=== PATIENT | male | born 1990 | race Caucasian/White ===

== ENCOUNTER 2018-01-13 11:22 | Inpatient (IN) | payer OTHER ==
[~2018-01-13] VITALS: Ht 185.4 cm; Wt 95.7 kg
[2018-01-13 15:14] LABS: BASOPHILS % 0.5 % (0.0-2.0); EOSINOPHILS % 0.7 % (0.0-5.0); HEMATOCRIT. 40.5 % (42.0-52.0); HEMOGLOBIN. 14.1 g/dL (14.0-18.0); MEAN CORPUSCULAR HEMOGLOBIN 30.8 pg (28.0-32.0); MEAN CORPUSCULAR VOLUME 88.2 fL (80.0-94.0); MEAN PLATELET VOLUME 10.7 fl (7.4-10.4); MONOCYTES % 12.7 % (2.0-8.0); NEUTROPHILS % 55.1 % (40.0-76.0); PLATELET 81 x1000/uL (130-400); RED BLOOD CELL COUNT 4.59 mill/uL (4.7-6.1); RED CELL DISTRIBUTION WIDTH 13.6 % (11.6-14.6)
[2018-01-13 15:15] LABS: CHLORIDE 100 mEq/L (98-107)
[2018-01-13 15:25] LABS: INR 1.1; PROTHROMBIN TIME 11.2 sec (9.1-11.1)
[2018-01-13] MEDS ORDERED: ACETAMINOPHEN 650MG/20.3ML UDC PO ONE (15:30)
[2018-01-13 15:42] LABS: CLARITY URINE CLEAR (CLEAR); COLOR URINE YELLOW (YELLOW); KETONES URINE NEGATIVE (NEGATIVE); LEUKOCYTE ESTERASE URINE NEGATIVE (NEGATIVE); NITRITE URINE NEGATIVE (NEGATIVE); OCCULT BLOOD URINE NEGATIVE (NEGATIVE); PH URINE 6.5 (4.5-8.0); PROTEIN URINE NEGATIVE (NEGATIVE); SPECIFIC GRAVITY URINE 1.012 (1.005-1.030)
[2018-01-13] MEDS ORDERED: DIPHENHYDRAMINE 50MG/ML VIAL IV ONE (16:15)
[2018-01-13] MEDS ORDERED: METHYLPREDNISOLONE SOD SUCC 125 MG/2 ML VIAL IV ONE (16:15)
[2018-01-13] MEDS ORDERED: IPRATROPIUM/ALBUTEROL 0.5-3(2.5)MG/3ML NEB INH PRN (17:30)
[2018-01-13 20:30] VITALS: BP 108/50
[2018-01-13 21:30] VITALS: BP_SYST 108; BP_DIAS 50; BP_DIAS 52
[2018-01-14] VITALS: BP 103/46
[2018-01-14] MEDS: SODIUM CHLORIDE 0.9% 1,000 ML IV SCH ×2 (03:30→13:30)
[2018-01-14 04:00] VITALS: BP 104/62
[2018-01-14 07:33] LABS: BASOPHILS % 0.3 % (0.0-2.0); EOSINOPHILS % 0.1 % (0.0-5.0); HEMATOCRIT. 37.6 % (42.0-52.0); HEMOGLOBIN. 13.3 g/dL (14.0-18.0); LYMPHOCYTES % 20.6 % (20.0-50.0); MEAN CORPUSCULAR HEMOGLOBIN 31.2 pg (28.0-32.0); MEAN CORPUSCULAR VOLUME 88.4 fL (80.0-94.0); MEAN PLATELET VOLUME 11.3 fl (7.4-10.4); MONOCYTES % 13.6 % (2.0-8.0); NEUTROPHILS % 65.4 % (40.0-76.0); PLATELET 94 x1000/uL (130-400); RED BLOOD CELL COUNT 4.25 mill/uL (4.7-6.1); RED CELL DISTRIBUTION WIDTH 13.4 % (11.6-14.6)
[2018-01-14 08:00] VITALS: BP 100/41
[2018-01-14 08:19] LABS: CHLORIDE 103 mEq/L (98-107)
[2018-01-14 08:30] LABS: LDL CHOLESTEROL 73 mg/dL (5-100)
[2018-01-14 08:32] LABS: HDL CHOLESTEROL 24 mg/dL (40-59)
[2018-01-14 08:33] LABS: T4 FREE 1.07 ng/dL (0.76-1.46)
[2018-01-14 12:00] VITALS: BP 97/45
[2018-01-14 12:00] LABS: CREATINE KINASE 67 IU/L (39-308)
[2018-01-14 14:29] LABS: *AMPHETAMINES SCREEN URINE PRESUMTIVE POSITIVE (NEGATIVE); *BARBITURATES SCREEN URINE NEGATIVE (NEGATIVE); *BENZODIAZEPINES SCREEN URINE NEGATIVE (NEGATIVE); *COCAINE SCREEN URINE NEGATIVE (NEGATIVE); METHADONE URINE SCREEN NEGATIVE (NEGATIVE)
[2018-01-14 14:30] LABS: CANNABINOID URINE SCREEN PRESUMTIVE POSITIVE (NEGATIVE); OPIATES URINE SCREEN NEGATIVE (NEGATIVE); PHENCYCLIDINE URINE SCREEN NEGATIVE (NEGATIVE)
[2018-01-15 13:10] LABS: HIV SCREEN 4G Non Reactive (Non Reactive)
== END 2018-01-14 18:30 | disposition home or self-care (01) | DRG 661 ==
LOC: ER 11:22 → SUPCPDRO 16:08 → 7WST 16:16 → EDBEDREQ 16:21 → EDBEDREQTM 16:21 → ENRESERV 19:54 → EDBEDREQSVC 20:35
PROVIDERS: ADMIT Internal Medicine; ATTEND Internal Medicine
DX: D69.6 Thrombocytopenia, unspecified (principal); R16.2 Hepatomegaly with splenomegaly, not elsewhere classified; R21 Rash and other nonspecific skin eruption; F12.90 Cannabis use, unspecified, uncomplicated; F17.210 Nicotine dependence, cigarettes, uncomplicated; R74.0 Nonspecific elevation of levels of transaminase and lactic acid dehydrogenase [LDH]; Z83.3 Family history of diabetes mellitus
CPT/HCPCS: 36415; 71045; 76700; 80061; 80305; 82550; 83605; 84439; 84443; 85651; 86140; 87389; 87804; 93306; 93970; 96374; 96375; 99285; J1200; J2930; J7040

== ENCOUNTER 2021-08-06 19:48 | Emergency (ER) | payer MEDICAID, OTHER ==
[~2021-08-06] VITALS: Ht 185.4 cm; Wt 100.0 kg
[2021-08-06] MEDS ORDERED: PREDNISONE 20MG TABLET PO ONE (21:45)
[2021-08-06] MEDS ORDERED: DIPHENHYDRAMINE 25MG CAPSULE PO ONE (21:45)
[2021-08-06] MEDS ORDERED: P20 MT (22:25)
[2021-08-06] MEDS ORDERED: DIPH25CA83 MT (22:25)
[2021-08-06 22:39] VITALS: BP 122/76
== END 2021-08-06 22:39 | disposition home or self-care (01) ==
LOC: ER 19:48
DX: L50.9 Urticaria, unspecified (principal); R21 Rash and other nonspecific skin eruption; F12.10 Cannabis abuse, uncomplicated
CPT/HCPCS: 99283; J7512; Q0163

== ENCOUNTER 2023-07-17 13:29 | Emergency (ER) | payer MEDICAID ==
[~2023-07-17] VITALS: Ht 188 cm; Wt 109.0 kg
[~2023-07-17 13:29] MED LIST: DIPH25CA83 MT; P20 MT
[2023-07-17 13:53] VITALS: BP 132/77; PULSE 118; RESP 18; TEMP 98.5; O2SAT 97
[2023-07-17] MEDS ORDERED: SULF1TAB48 MT (16:01)
[2023-07-17] MEDS ORDERED: CEPH500C2 MT (16:01)
== END 2023-07-17 17:45 | disposition home or self-care (01) ==
LOC: ER 13:29
DX: L02.31 Cutaneous abscess of buttock (principal); F12.10 Cannabis abuse, uncomplicated
CPT/HCPCS: 99283

== ENCOUNTER 2023-07-20 10:52 | Emergency (ER) | payer MEDICAID ==
[~2023-07-20] VITALS: Ht 188 cm; Wt 111.0 kg
[~2023-07-20 10:52] MED LIST changes: +CEPH500C2 MT; +SULF1TAB48 MT
[2023-07-20 11:06] VITALS: BP 132/79; PULSE 107; RESP 16; TEMP 98.4; O2SAT 100
[2023-07-20] MEDS: LIDOCAINE HCL 1% 20ML VIAL (Pyxis) INJ INFIL ONE (12:15)
== END 2023-07-20 14:20 | disposition home or self-care (01) ==
LOC: ER 10:52
DX: L03.116 Cellulitis of left lower limb (principal); Z98.890 Other specified postprocedural states
CPT/HCPCS: 76604; 10060; 99284; J3490; Z7610 ×2

== ENCOUNTER 2023-08-11 06:18 | Inpatient (IN) | payer MEDICAID, OTHER ==
[~2023-08-11] VITALS: Ht 185.4 cm; Wt 102.7 kg
[2023-08-11] MEDS ORDERED: CLINDAMYCIN 600 MG in DEXTROSE 5% WATER 50 ML IV ONE (07:15)
[2023-08-11 07:27] LABS: BASOPHILS % 0.6 % (0.0-2.0); EOSINOPHILS % 2.6 % (0.0-5.0); HEMATOCRIT. 42.5 % (42.0-52.0); HEMOGLOBIN. 14.3 g/dL (14.0-18.0); LYMPHOCYTES % 12.7 % (20.0-50.0); MEAN CORPUSCULAR HEMOGLOBIN 30.7 pg (28.0-32.0); MEAN CORPUSCULAR HGB CONC 33.6 g/dL (31.0-37.0); MEAN CORPUSCULAR VOLUME 91.4 fL (80.0-94.0); NEUTROPHILS % 76.1 % (40.0-76.0); PLATELET 155 x1000/uL (130-400); RED BLOOD CELL COUNT 4.65 mill/uL (4.7-6.1); RED CELL DISTRIBUTION WIDTH 13.5 % (11.6-14.6); WHITE BLOOD COUNT 9.5 x1000/uL (4.5-11.0)
[2023-08-11 07:37] LABS: CARBON DIOXIDE 29 mEq/L (21-32); CHLORIDE 105 mEq/L (98-107); POTASSIUM 3.6 mEq/L (3.5-5.1); SODIUM 139 mEq/L (136-145)
[2023-08-11 07:38] LABS: CALCIUM 9.9 mg/dL (8.7-10.4)
[2023-08-11 07:43] LABS: GLUCOSE 109 mg/dL (70-105); UREA NITROGEN BLOOD 12 mg/dL (9-23)
[2023-08-11] MEDS: CLINDAMYCIN 600MG PREMIX 50 ML IV NR (08:41)
[2023-08-11] MEDS ORDERED: ACETAMINOPHEN 325MG TABLET PO PRN (23:00)
[2023-08-11] MEDS ORDERED: ONDANSETRON HCL 4MG/2ML INJ IV PRN (23:00)
[2023-08-11] MEDS ORDERED: IPRATROPIUM/ALBUTEROL 0.5-3(2.5)MG/3ML NEB HHN PRN (23:00)
[2023-08-11] MEDS ORDERED: MORPHINE SULFATE 2 MG/ML CPJ (NOT FOR IM USE) IV PRN (23:00)
[2023-08-11] MEDS: ENOXAPARIN 40MG/0.4ML SYR SUBCUT SCH (23:56)
[2023-08-11] MEDS: DEXT 5%/0.45% NACL 1000ML 1,000 ML IV SCH (23:56)
[2023-08-11] MEDS: PIPERACILLIN/TAZO 3.375G/50ML 50 ML IV SCH (23:58)
[2023-08-12] MEDS ORDERED: NALOXONE HCL 0.4MG/ML VIAL IV PRN (01:30)
[2023-08-12] MEDS: VANCOMYCIN 1,750 MG in DEXT 5% WATER 500 ML IV NR (01:41)
[2023-08-12 02:35] VITALS: BP 114/62; PULSE 71; RESP 20; TEMP 97.5
[2023-08-12 04:00] VITALS: BP 119/51; PULSE 67; RESP 18; TEMP 98.8
[2023-08-12 04:43] LABS: BASOPHILS % 0.5 % (0.0-2.0); EOSINOPHILS % 4.8 % (0.0-5.0); HEMOGLOBIN. 12.6 g/dL (14.0-18.0); MEAN CORPUSCULAR HEMOGLOBIN 30.5 pg (28.0-32.0); MEAN CORPUSCULAR HGB CONC 33.3 g/dL (31.0-37.0); MEAN CORPUSCULAR VOLUME 91.6 fL (80.0-94.0); MEAN PLATELET VOLUME 9.8 fl (7.4-10.4); MONOCYTES % 10.9 % (2.0-8.0); NEUTROPHILS % 59.8 % (40.0-76.0); PLATELET 117 x1000/uL (130-400); RED BLOOD CELL COUNT 4.14 mill/uL (4.7-6.1); RED CELL DISTRIBUTION WIDTH 13.4 % (11.6-14.6); WHITE BLOOD COUNT 7.1 x1000/uL (4.5-11.0)
[2023-08-12 05:34] LABS: CHLORIDE 106 mEq/L (98-107); POTASSIUM 3.6 mEq/L (3.5-5.1); SODIUM 138 mEq/L (136-145)
[2023-08-12 05:35] LABS: CARBON DIOXIDE 24 mEq/L (21-32)
[2023-08-12 05:36] LABS: CALCIUM 8.8 mg/dL (8.7-10.4)
[2023-08-12 05:40] LABS: CREATININE 0.7 mg/dL (0.6-1.3); GLUCOSE 116 mg/dL (70-105); UREA NITROGEN BLOOD 7 mg/dL (9-23)
[2023-08-12 05:46] LABS: T4 FREE 1.18 ng/dL (0.89-1.76)
[2023-08-12 05:47] LABS: THYROID STIMULATING HORMONE 0.85 uIU/mL (0.55-4.78)
[2023-08-12 08:00] VITALS: BP 110/66; PULSE 60; RESP 18; TEMP 97.9
[2023-08-12] MEDS: VANCOMYCIN 750MG/150ML (BAXTER) IV NR (08:55)
[2023-08-12 12:00] VITALS: BP 100/50; PULSE 56; RESP 18; TEMP 97.9
[2023-08-12] MEDS: VANCOMYCIN 1.25GM PMX (XELLIA) 250 ML IV SCH (14:35)
[2023-08-12 16:00] VITALS: BP 117/61; PULSE 84; RESP 18; TEMP 97.4; TEMP 97.5
[2023-08-12 20:00] VITALS: BP 114/55; PULSE 74; RESP 20; TEMP 98.2
[2023-08-13 04:00] VITALS: BP 113/52; PULSE 77; RESP 18; TEMP 98
[2023-08-13 06:02] LABS: CHLORIDE 108 mEq/L (98-107); POTASSIUM 3.8 mEq/L (3.5-5.1); SODIUM 140 mEq/L (136-145)
[2023-08-13 06:03] LABS: CARBON DIOXIDE 27 mEq/L (21-32)
[2023-08-13 06:08] LABS: CREATININE 0.7 mg/dL (0.6-1.3); GLUCOSE 91 mg/dL (70-105); UREA NITROGEN BLOOD 9 mg/dL (9-23)
[2023-08-13 06:09] LABS: VANCOMYCIN TROUGH 19.8 ug/mL (5.0-10.0)
[2023-08-13 06:12] LABS: HEMATOCRIT 38.7 % (42.0-52.0); HEMOGLOBIN 12.9 g/dL (14.0-18.0); MEAN CORPUSCULAR HEMOGLOBIN 30.5 pg (28.0-32.0); MEAN CORPUSCULAR HGB CONC 33.3 g/dL (31.0-37.0); MEAN CORPUSCULAR VOLUME 91.6 fL (80.0-94.0); PLATELET 126 x1000/uL (130-400); RED BLOOD CELL COUNT 4.23 mill/uL (4.7-6.1); RED CELL DISTRIBUTION WIDTH 13.3 % (11.6-14.6); WHITE BLOOD COUNT 6.7 x1000/uL (4.5-11.0)
[2023-08-13 08:00] VITALS: BP 109/57; PULSE 63; RESP 17; TEMP 98.6
[2023-08-13] MEDS ORDERED: DOXY150T5 MT (10:39)
[2023-08-13 11:25] VITALS: BP 109/57; PULSE 63; TEMP 98.6; O2SAT 97
[2023-08-13] MEDS ORDERED: VANCOMYCIN 1.25GM PMX (XELLIA) 250 ML IV SCH (17:00)
== END 2023-08-13 13:00 | disposition home or self-care (01) | DRG 603 ==
LOC: ER 06:18 → 5WST 10:39 → EDBEDREQ 10:44 → EDBEDREQTM 10:44 → EDBEDREQ 10:45 → EDBEDREQSVC 10:45 → 7WST 08-12 01:16
PROVIDERS: ADMIT Internal Medicine; ATTEND Internal Medicine
DX: L03.211 Cellulitis of face (principal); D69.6 Thrombocytopenia, unspecified; F17.200 Nicotine dependence, unspecified, uncomplicated
CPT/HCPCS: 36415; 70486; 80048; 80202; 83036; 84145; 84439; 84443; 84481; 85025; 85027; 99285; J1650; J2543; J3370; J3490; J7060

== ENCOUNTER 2023-09-02 14:02 | Emergency (ER) | payer OTHER ==
[~2023-09-02] VITALS: Ht 185.4 cm; Wt 105.0 kg
[~2023-09-02 14:02] MED LIST changes: -CEPH500C2 MT; +DOXY150T5 MT; -P20 MT; -SULF1TAB48 MT
[2023-09-02 14:05] VITALS: O2SAT 98
[2023-09-02] MEDS ORDERED: KETO15CR2 TP (16:04)
[2023-09-02] MEDS ORDERED: CEPH500C2 MT (16:04)
[2023-09-02] MEDS ORDERED: SULF1TAB48 MT (16:04)
[2023-09-02 16:28] VITALS: BP 139/68; PULSE 95; RESP 12; TEMP 98.3
== END 2023-09-02 17:17 | disposition home or self-care (01) ==
LOC: ER 14:02
DX: L03.317 Cellulitis of buttock (principal); B35.4 Tinea corporis
CPT/HCPCS: 99283